=== PATIENT | male | born 1995 | race Caucasian/White ===

== ENCOUNTER 2021-06-09 10:07 | Emergency (ER) | payer OTHER, SELFPAY ==
[2021-06-09] VITALS (28 sets, daily range): BP systolic 94–124; BP diastolic 55–80; PULSE 66–96; RESP 13–26; TEMP 36.8–37.1; O2SAT 98–100
--- NOTE | ~2021-06-09 | US_ITS ---
EXAMINATION: US abdomen limited EXAM DATE: 06/09/2021 12:47 INDICATION: Abdominal pain, vomiting, hyperbilirubinemia. TECHNIQUE: Multiple grayscale and Doppler images of the abdomen right upper quadrant were obtained (b y a technologist who performed the scan) and subsequently reviewed. There is no prior study for yasmani torres. FINDINGS: The pancreatic head and body are normal in appearance. The pancreatic tail is not visualized. The l iver has normal echogenicity and contour. There are no focal liver lesions identified. There is no evidence of intrahepatic biliary duct dilation. Portal venous flow was seen in the hepatopedal, nor mal direction and has normal Doppler waveform. No right-sided hydronephrosis. Common bile duct measures 2 mm, which is normal. The gallbladder wall is normal in thickness, with ex pected amount of distention. No sonographic evidence of pericholecystic fluid. Small amount of echo genic debris without discrete cholelithiasis identified. Technologist performing exam reports patien t did not demonstrate sonographic Manzo's sign. Please note that this sign is less reliable in isatu ents who have received pain medication. IMPRESSION: 1. Small amount of gallbladder debris. 2. No biliary distention. Reviewed, dictated and finalized at location B.
--- NOTE | ~2021-06-09 | CT_ITS ---
EXAMINATION: CT abdomen pelvis w con INDICATION: Upper abdominal pain TECHNIQUE: Computed tomographic images of the abdomen and pelvis were obtained after the administrati on of 100 cc of Omnipaque 350 intravenous contrast. The dose-length product (DLP) was 196.08 mGy-cm. Automated exposure control and iterative reconstruction technique were employed. COMPARISON: None available FINDINGS: The lung bases are clear. The heart size is normal. A 4 mm low-attenuation lesion of the li osvaldo dome likely represents a cyst. The spleen, pancreas, and adrenal glands are normal. The gallbladd er is unremarkable. Cysts of the kidneys measure up to 6 mm on the right. No pathologically enlarged abdominal or pelvic lymph nodes are identified. There is no free intraperitoneal gas or evidence of b owel obstruction. There is a small volume of nonspecific free fluid in the pelvis. There is an L4 but terfly vertebra. The appendix is not definitely identified. IMPRESSION: 1. No CT correlate for the patient's symptoms. Reviewed, dictated and finalized at location A.
[2021-06-09 10:53] LABS: Basophils Percent Auto 0.2 % (0.2-1.2); Hematocrit 47.8 % (42.0-52.0); Hemoglobin 16.3 g/dL (14.0-18.0); Immature Granulocyte Absolute 0.05 K/mm3 (0.00-0.031); Immature Granulocyte Percent A 0.3 % (0-0.5); Lymphocytes Absolute Auto 0.49 K/mm3 (0.9-3.2); Lymphocytes Percent Auto 3.4 % (18.3-44.2); Mean Corpuscular HGB Conc 34.1 g/dl (32-36); Mean Corpuscular Hemoglobin 29.4 pg (26-34); Mean Corpuscular Volume 86.1 fl (80-100); Mean Platelet Volume 9.9 fl (7.4-10.4); Monocytes Absolute Auto 0.7 K/mm3 (0.1-0.6); Monocytes Percent Auto 4.9 % (2.6-8.5); Neutrophils Absolute Auto 13.1 K/mm3 (1.3-6.7); Neutrophils Percent Auto 91.2 % (45.5-73.1); Platelet Count Result 182 k/mm3 (150-375); Red Blood Count 5.55 M/mm3 (4.6-6.20); Red Cell Distribution Width 11.9 % (11.5-14.5); White Blood Count 14.4 K/mm3 (4.5-10.0)
[2021-06-09 11:15] LABS: Alkaline Phosphatase 76 U/L (38-126); Anion Gap 17 mmol/L (8-16); Aspartate Amino Transferase 36 U/L (17-59); Bilirubin,Total 4.6 mg/dL (0.2-1.3); Blood Urea Nitrogen 16 mg/dL (9-20); Calcium 9.8 mg/dL (8.4-10.2); Carbon Dioxide 19 mmol/L (22-30); Chloride 97 mmol/L (98-107); Estimated Glomerular Filt Rate > 60; Glucose 130 mg/dL (65-110); Lipase 70 U/L (23-300); Potassium 3.6 mmol/L (3.4-5.0); Sodium 133 mmol/L (137-145)
[2021-06-09 11:27] LABS: Alanine Aminotransferase 30 U/L (4-50)
--- NOTE | 2021-06-09 11:52 | ECG_ITS ---
Measurements Intervals Herman Rate: 82 P: 81 AL: 186 QRS: 104 QRSD: 89 T: 64 QT: 394 QTc: 462 Interpretive Statements SINUS RHYTHM RIGHT AXIS DEVIATION INCOMPLETE RIGHT BUNDLE BRANCH BLOCK BASELINE ARTIFACT- II, V1, V3-V6 BORDERLINE ECG Electronically Signed On 06-09-2021 14:00:31 CDT by Colton Bland D.O.
--- NOTE | 2021-06-09 11:59 | ED.URI ---
HPI - URI/Sore Throat General Chief Complaint: Upper Respiratory Infection Stated Complaint: CHEST PAIN Time Seen by Provider: 06/09/21 11:41 Source: patient Mode of arrival: ambulatory Limitations: no limitations History of Present Illness HPI Narrative: This is a 25 year old male that presents to the ER for nausea and vomiting since last night. Reports he had the first dose of the COVID vaccine two days ago. Reports the day of he felt okay, just a little sore. Reports last night he started to have nausea and vomiting. Reports he had been vomiting all night. Reports abdominal pain that is sometimes in the upper abdomen, and sometimes int he lower abdomen. Reports he feels a little short of breath and has a little chest pain. Denies fever, cough, diarrhea, or dysuria. Related Data Allergies Allergy/AdvReac Type Severity Reaction Status Date / Time No Known Allergies Allergy Verified 06/09/21 11:50 Review of Systems Review of Systems: CONSTITUTIONAL: Denies fever CARDIOVASCULAR: Reports chest pain. Denies edema. RESPIRATORY: Reports dyspnea. Denies cough GASTROINTESTINAL: Reports abdominal pain, nausea, vomiting. Denies diarrhea. GENITOURINARY: Denies dysuria All systems reviewed & are unremarkable except as noted in HPI and below PMFSH Social History Social History (Updated 06/09/21 @ 12:05 by Yee Bowman PA-C) Smoking status: Current every day smoker Tobacco type: e-cigarettes/vaping Substance use: never Exam Narrative: GENERAL: Well-appearing, well-nourished, anxious HEAD: Normocephalic, atraumatic. EYES: EOMI. ENT: Nares clear, no rhinorrhea or epistaxis. Mucous membranes moist. Oropharynx without tonsillar hypertrophy exudate or other lesions. Bilateral TMs pearly walker non-bulging NECK: Supple. No adenopathy or masses. CHEST: Clear to auscultation. No respiratory distress. No wheezes rales or rhonchi HEART: Regular rate and rhythm. No murmur heard. Normal peripheral pulses. ABDOMEN: Soft, nondistended, normal active bowel sounds. Mild tenderness to palpation throughout the abdomen, without guarding. No CVA tenderness EXTREMITIES: Normal range of motion. No edema. SKIN: Warm, dry, no rash. NEURO: No focal deficits. Alert and oriented x3. PSYCH: Normal mood and affect Course Consultations Consultation #1: Spoke with patient's primary about work-up who will follow-up in clinic Date: 06/09/21 Time: 16:26 Vital Signs Vital signs: Vital Signs Temperature 98.2 F 06/09/21 10:26 Pulse Rate 82 06/09/21 10:26 Respiratory Rate 26 H 06/09/21 10:26 Blood Pressure 106/65 06/09/21 10:26 Pulse Oximetry 100 06/09/21 10:26 Temperature 98.2 F 06/09/21 10:26 Pulse Rate 75 06/09/21 16:01 Respiratory Rate 13 06/09/21 16:01 Blood Pressure 96/65 L 06/09/21 16: Pulse Oximetry 98 06/09/21 16:01 MDM - URI/Sore Throat MDM Narrative Medical decision making narrative: Patient presents to the ER for nausea and vomiting since last night. He is afebrile and nontoxic-appearing. Vitals are stable. CBC does show leukocytosis to 14.4. Metabolic panel with evidence of dehydration. Patient hydrated with 2 L of IV fluids in the ED. UA without evidence of infection, does also show some dehydration. Right upper quadrant ultrasound shows a small amount of gallbladder debris, no biliary distention or other acute findings. CT scan of the abdomen and pelvis shows no correlate for the patient's symptoms. Once again patient was hydrated in the ED and given nausea medication with relief. Patient was also complaining of chest discomfort. He was quite anxious on arrival and hyperventilating. EKG without concerning changes and baseline troponin is negative. He does report relief in his symptoms. Able to tolerate p.o. challenge. I did recommend admission for further treatment of dehydration. Reports he feels better and would like to go home at this time. It does look like hyperbilirubinemia is not new f
[2021-06-09] MEDS: SODIUM CHLORIDE 0.9% IV 1,000 ML 999 ML IV CONT ×2 (12:06→13:31)
[2021-06-09] MEDS: METOCLOPRAMIDE HCL INJ 10 MG/2 ML VIAL IV PUSH (12:08)
[2021-06-09] MEDS: diphenhydrAMINE HCl INJ 50 MG/ML VIAL 25 MG IV PUSH (12:10)
[2021-06-09] MEDS: MORPHINE SULFATE (*CRX) 2 MG/ML INJ IV PUSH (12:12)
[2021-06-09 13:53] LABS: Troponin I < 0.012 ng/mL (0.000-0.034)
[2021-06-09 13:54] LABS: INR 1.1; Prothrombin Time 14.5 Seconds (11.1-14.7)
[2021-06-09 13:55] LABS: Partial Thromboplastin Time 25.3 SECONDS (22.3-36.8)
[2021-06-09 14:12] LABS: Add Urine Microscopic? YES; Appearance Urine Clear (Clear); Bacteria Urine Trace /hpf; Bilirubin Urine Negative (Negative); Blood Urine Negative (Negative); Color Urine Yellow (Yellow); Glucose Urine UA Negative (Negative); Ketones Urine 2+ mg/dL (Negative); Leukocyte Esterase Ur Negative LEU/UL (Negative); Mucus Urine Rare /lpf; Nitrate Urine Negative (Negative); Protein Urine 1+ mg/dL (Negative); Specific Grav Ur 1.029 (1.001-1.035)
== END 2021-06-09 16:44 | disposition home or self-care (01) ==
PROVIDERS: Emergency Medicine; Physician Assistant; Emergency Provider Emergency Medicine; PCP Physician Assistant
DX: E80.6 Other disorders of bilirubin metabolism (principal); R11.2 Nausea with vomiting, unspecified; F17.290 Nicotine dependence, other tobacco product, uncomplicated; I45.10 Unspecified right bundle-branch block
CPT/HCPCS: 36415; 74177; 76705; 80053; 81001; 83690; 84484; 85025; 85610; 85730; 93005; 96361; 96374; 96375; 99284; J0131; J1200; J2270; J2765; J7030; Q9967

== ENCOUNTER 2021-08-26 16:04 | Outpatient (CLI) | payer OTHER, SELFPAY ==
[2021-08-26 16:58] LABS: Alanine Aminotransferase 21 U/L (4-50); Albumin Level 4.9 g/dL (3.5-5.1); Alkaline Phosphatase 68 U/L (38-126); Aspartate Amino Transferase 30 U/L (17-59); Bilirubin,Total 1.5 mg/dL (0.2-1.3)
[2021-08-28 17:12] LABS: GGT 11 U/L (3-70)
== END 2021-08-26 16:05 | disposition home or self-care (01) ==
LOC: ANHLAB 16:09
PROVIDERS: PCP Physician Assistant; Visit Provider Internal Medicine Gastroenterology
DX: E80.6 Other disorders of bilirubin metabolism (principal); R17 Unspecified jaundice
CPT/HCPCS: 36415; 80076; 82977

== ENCOUNTER 2023-03-11 03:41 | Emergency (ER) | payer SELFPAY ==
--- NOTE | ~2023-03-11 | XR_ITS ---
Left wrist Technique: PA, oblique, lateral, and ulnar deviation views were obtained. Clinical History: Injury Findings: No acute fracture or dislocation is seen. Osseous alignment is anatomic. Joint spaces are p reserved. Soft tissues are unremarkable. Impression: Unremarkable left wrist radiographs. Reviewed, dictated and finalized at location . Impression: Unremarkable left wrist radiographs.
[2023-03-11 03:45] VITALS: BP 172/82; PULSE 91; RESP 16; TEMP 37; O2SAT 100
--- NOTE | 2023-03-11 04:24 | ED.UPPEXIN ---
HPI - Extremity Injury (Upper) General Chief Complaint: Extremity Injury, Upper Stated Complaint: left wrist pain Time Seen by Provider: 03/11/23 03:46 Source: patient Mode of arrival: ambulatory Limitations: no limitations History of Present Illness HPI narrative: 27-year-old otherwise healthy here with complaints of left wrist pain. Patient states that he fell off the [address] yesterday and is now having significant pain was unable to sleep. complaint: injury to: left and wrist Onset (ago): day(s) (1) Other injuries: none Handedness: right Place: outdoors Relieving factors: none Exacerbating factors: movement of extremity Context: fall Associated symptoms: denies other symptoms Related Data Allergies Allergy/AdvReac Type Severity Reaction Status Date / Time No Known Allergies Allergy Verified 03/11/23 03:41 Review of Systems Review of Systems: All systems reviewed & are unremarkable except as noted in HPI and below Constitutional: Constitutional: Reports no additional constitutional complaints Eyes: Eyes: Reports no additional eye complaints ENT: Reports system reviewed and no additional complaints, except as documented Cardiovascular: Cardiovascular: Reports no additional cardiovascular complaints Respiratory: Respiratory: Reports no additional respiratory complaints Gastrointestinal: Gastrointestinal: Reports no additional gastrointestinal complaints Musculoskeletal: Musculoskeletal: Reports as per HPI Neurologic: Reports system reviewed and no additional complaints, except as documented PMFSH Social History Social History Smoking status: Current every day smoker Tobacco type: e-cigarettes/vaping Substance use: never Exam Narrative: GENERAL: Well-appearing, well-nourished, and in no acute distress. HEAD: Normocephalic, atraumatic. EYES: PERRLA and EOMI. NECK: Supple. CHEST: Clear to auscultation. No respiratory distress. HEART: Regular rate and rhythm. No murmur heard. Normal peripheral pulses. EXTREMITIES: Normal range of motion. No edema. Examination of the left wrist shows no deformity very minimal soft tissue swelling SKIN: Warm, dry, no rash. NEURO: No focal deficits. Alert and oriented x3. PSYCH: Normal mood and affect. Course Course Emergency Course: Notified patient about the x-ray findings advised to continue splint for now take Tylenol ibuprofen for pain Vital Signs Vital signs: Vital Signs Temperature 37.0 C 03/11/23 03:45 Pulse Rate 91 03/11/23 03:45 Respiratory Rate 16 03/11/23 03:45 Blood Pressure 172/82 H 03/11/23 03:45 Pulse Oximetry 100 03/11/23 03:45 Oxygen Delivery Room Air 03/11/23 03:45 Temperature 37.0 C 03/11/23 03:45 Pulse Rate 91 03/11/23 03:45 Respiratory Rate 16 03/11/23 03:45 Blood Pressure 172/82 H 03/11/23 03:45 Pulse Oximetry 100 03/11/23 03:45 Oxygen Delivery Room Air 03/11/23 03:45 MDM - Extremity Injury (Upper) Differential Diagnosis Differential diagnosis: Likely sprain and strain of wrist, fracture of wrist and Colles' fracture Imaging Data My impression: No fracture or dislocation Discharge Plan Discharge Clinical Impression: Sprain and strain of wrist Patient Disposition: Home, Self-Care Condition: Stable Instructions: Wrist Sprain (ED) Additional Instructions: Continue splint take ibuprofen for pain Prescriptions: New ibuprofen 600 mg tablet 600 mg PO Q6H PRN (Reason: pain) Qty: 20 0RF No Action ondansetron 4 mg tablet,disintegrating 4 mg PO Q8H PRN (Reason: nausea and vomiting) Qty: 10 0RF Follow-up/Referrals: Radha Pappas MD [Physician] - PHYSICIAN NOT ON STAFF,NONSTAFF [Primary Care Provider] - Time of Disposition: 04:34
--- NOTE | 2023-03-11 04:32 | PC.NURSE ---
[facility] Pilot adjusted patient's current velcro wrist splint and patient reported he felt okay going home with current splint.
== END 2023-03-11 04:39 | disposition home or self-care (01) ==
PROVIDERS: Emergency Provider Family Medicine
DX: S63.502A Unspecified sprain of left wrist, initial encounter (principal); S66.912A Strain of unspecified muscle, fascia and tendon at wrist and hand level, left hand, initial encounter; F17.290 Nicotine dependence, other tobacco product, uncomplicated; V86.55XA Driver of 3- or 4- wheeled all-terrain vehicle (ATV) injured in nontraffic accident, initial encounter
CPT/HCPCS: 73110; 99283